=== PATIENT | male | born 1950 | race Caucasian/White ===

== ENCOUNTER → 2018-11-22 | Day surgery (SDC) | payer MEDICARE, BC ==
[~2018-11-22] MED LIST: Buffered Lidocaine 1% SYRIN* 1 ML/SYRINGE INTRADERM ONE; Bupivacaine 0.5%* 50 ML MDV VIAL ONE; Dexamethasone IV* 4 MG/ML 1 ML (4 MG) ONE; Ketorolac INJ* 30 MG/ML 1 ML VIAL ONE; Lactated Ringers 1000 ML Bag* 1,000 ML IV SCH; Midazolam* 1 MG/ML 2 ML VIAL (2 MG) ONE; Naloxone* 0.4 MG/ML 1 ML VIAL IV PRN; Ondansetron INJ* 2 MG/ML VIAL IV PRN; Ondansetron INJ* 2 MG/ML VIAL ONE; Propofol* 10 MG/ML 20 ML BTL ONE; Rocuronium* 10 MG/ML VIAL ONE; Sugammadex * 200 MG/2 ML VIAL IV PUSH ONE; ceFAZolin 2 GM PREMIX in ORs 2 GM/50 ML BAG ONE; fentaNYL* 50 MCG/ML 2 ML VIAL (100 MCG VIAL) ONE; oxyCODONE/Acetamin 5/325 MG* TAB ONE
[2018-11-22] MEDS: fentaNYL* 50 MCG/ML 2 ML VIAL (100 MCG VIAL) IV PRN ×2 (10:53→11:00)
[2018-11-22] MEDS: oxyCODONE/Acetamin 5/325 MG* TAB PO PRN ×2 (10:54→10:56)
[2018-11-22 11:58] VITALS: BP 128/65
--- NOTE | 2018-11-23 00:02 | OP ---
DATE OF OPERATION: 11/22/18 - [facility] DATE OF : 52 ATTENDING SURGEON: Ruben Ivey MD. [employer]: [employer]. PRE-OP DIAGNOSIS: Recurrent right inguinal hernia. POST-OP DIAGNOSIS: Recurrent right inguinal hernia, left inguinal hernia. OPERATIVE PROCEDURE: Robotic repair of bilateral inguinal hernias, right recurrent with mesh, left inguinal hernia with mesh. INDICATIONS FOR PROCEDURE: Right inguinal hernias, recurrent. Risks included, but not limited to, bleeding, infection, recurrence of the hernia, injury to intraabdominal contents including the bowel, pelvic nerves and vessels were explained to the patient, who seemed to understand and agreed to the procedure and all questions were answered. DESCRIPTION OF PROCEDURE: The patient was taken to the operating room and placed supine. Preoperative antibiotics were given. After the successful induction of general endotracheal anesthesia, the abdomen was prepped and draped in sterile fashion. Time-out was performed indicating correct patient and correct procedure. A 5-mm trocar was placed in the left upper quadrant under direct visualization of the camera using a bladeless Optiview trocar. Pneumoperitoneum was achieved to 15 mmHg. Camera was placed in the abdomen and the abdomen was scanned. There was no obvious injury from trocar placement. The 8-mm trocars were placed in the midline and right upper quadrant respectively and then the 5-mm trocar was replaced with an 8-mm robotic trocar. The robot was brought in and docked after the patient was placed in the slight Trendelenburg position and mesh for both sides and 2 sutures were passed. The peritoneum was taken down on the right side. The old mesh plug was then placed covering the indirect space and there was a large direct hernia noted. Mesh was placed over the right pelvis covering the direct, indirect, and femoral spaces. The peritoneum was closed with a running V-lock stitch. The left side was then approached. The peritoneum was taken down exposing a large direct hernia as well. He appeared to have a small femoral hernia as well. The ProGrip mesh similar to the right side was placed over the pelvis covering the femoral direct and indirect spaces. The cord structures just like the right side were identified and avoided. The peritoneum was closed with a running V-lock stitch. [place] were removed. The abdomen was scanned, and there was no evidence of injury. Peritoneum was released from the abdomen. The trocars were removed after pneumoperitoneum was released and the skin was closed with Monocryl and glue. He tolerated the procedure well. He was extubated and taken to Recovery in stable condition. [id number]/[facility] #: [id number] MARTÍN
== END | disposition home or self-care (01) ==
LOC: OR 07:06
PROVIDERS: ATTEND Surgery
DX: K40.91 Unilateral inguinal hernia, without obstruction or gangrene, recurrent (principal); K40.90 Unilateral inguinal hernia, without obstruction or gangrene, not specified as recurrent; I10 Essential (primary) hypertension; K21.9 Gastro-esophageal reflux disease without esophagitis; Z96.643 Presence of artificial hip joint, bilateral; Z87.891 Personal history of nicotine dependence
CPT/HCPCS: 49650; 49651; S2900; A9270-GY; C1781; J0690; J1100; J1885; J2250; J2405; J2704; J3010; J3490